=== PATIENT | female | born 1990 | race Caucasian/White ===

== ENCOUNTER 2021-09-27 23:07 | Emergency (ER) | payer MEDICAID ==
--- NOTE | 2021-09-28 00:06 | XRay Report ---
RIGHT SHOULDER, 3 VIEWS INDICATION / CLINICAL INFORMATION: INJURY. Patient fell off a 4 carranza COMPARISON: None available. FINDINGS: There is comminuted fracture involving the proximal humerus. Fracture involves the humeral neck and e xtends to involve the greater tuberosity age and of the humeral head. There is prominent displacement identified primarily on the Y view at the level of the humeral neck. The humeral head remains locate d within the glenohumeral joint. The remainder of the right shoulder is intact. AC joint and scapula appear intact with normal alignme nt. Visualized right ribs are unremarkable. IMPRESSION: Comminuted fracture of the proximal humerus primarily involving the humeral neck and marjorie on of the greater tuberosity. Signer Name: Rosa Maria Barnett MD Signed: 09/28/2021 12:01 AM Workstation Name: [id number]
[2021-09-28] MEDS ORDERED: oxyCODONE /ACETAMINOPHEN 5-325MG TAB PO ONE (00:50)
[2021-09-28] MEDS ORDERED: IBUPROFEN 800 MG TAB PO ONE (00:50)
--- NOTE | 2021-09-28 00:59 | Emergency Department Report ---
ED Extremity Problem HPI - General Chief complaint: Extremity Injury, Upper Stated complaint: ARM INJURY Source: patient Mode of arrival: Ambulatory Limitations: No Limitations - History of Present Illness Initial comments: Patient is a 31-year-old female with no significant past medical history who suffered a fall prior to arrival. Was a ground-level fall patient injured right shoulder. Pain is estimated at a 7 out of 10 in severity with any movement. No head injury no other complaints at this time. - Related Data Previous Rx's Medication Instructions Recorded Last Taken Type HYDROcodone/APAP 5-325 [Jerome 1 - 2 each PO Q6HR PRN #15 tablet 09/28/21 Unknown Rx 5/325] Ketorolac [Toradol] 10 mg PO Q6H PRN #20 tablet 09/28/21 Unknown Rx Allergies Allergy/AdvReac Type Severity Reaction Status Date / Time No Known Allergies Allergy Unverified 09/27/21 23:12 ED Review of Systems ROS: Stated complaint: ARM INJURY Other details as noted in HPI Comment: All other systems reviewed and negative ED Past Medical Hx - Past Medical History Previous Medical History?: No - Surgical History Past Surgical History?: No - Medications Home Medications: Home Medications Medication Instructions Recorded Confirmed Last Taken Type HYDROcodone/APAP 5-325 [Jerome 1 - 2 each PO Q6HR PRN #15 tablet 09/28/21 Unknown Rx 5/325] Ketorolac [Toradol] 10 mg PO Q6H PRN #20 tablet 09/28/21 Unknown Rx ED Physical Exam - General Limitations: No Limitations General appearance: alert, in no apparent distress - Head Head exam: Present: atraumatic, normocephalic - Eye Eye exam: Present: normal appearance - ENT ENT exam: Present: mucous membranes moist - Neck Neck exam: Present: normal inspection - Respiratory Respiratory exam: Present: normal lung sounds bilaterally. Absent: respiratory distress - Cardiovascular Cardiovascular Exam: Present: regular rate, normal rhythm - GI/Abdominal GI/Abdominal exam: Present: distended - Extremities Exam Extremities exam: Present: normal inspection - Expanded Upper Extremity Exam Right Shoulder Exam: Present: tenderness, swelling. Absent: full ROM - Back Exam Back exam: Present: normal inspection - Neurological Exam Neurological exam: Present: alert, oriented X3 - Psychiatric Psychiatric exam: Present: normal affect, normal mood - Skin Skin exam: Present: warm, dry, intact, normal color. Absent: rash ED Medical Decision Making - Radiology Data RIGHT SHOULDER, 3 VIEWS INDICATION / CLINICAL INFORMATION: INJURY. Patient fell off a 4 carranza COMPARISON: None available. FINDINGS: There is comminuted fracture involving the proximal humerus. Fracture involves the humeral neck and extends to involve the greater tuberosity age and of the humeral head. There is prominent displacement identified primarily on the Y view at the level of the humeral neck. The humeral head remains located within the glenohumeral joint. The remainder of the right shoulder is intact. AC joint and scapula appear intact with normal alignment. Visualized right ribs are unremarkable. IMPRESSION: Comminuted fracture of the proximal humerus primarily involving the humeral neck and region of the greater tuberosity. Signer Name: Rosa Maria Barnett MD Signed: 09/28/2021 12:01 AM Workstation Name: [id number] - Medical Decision Making Patient with a proximal humerus fracture. Patient placed in a coaptation splint and a sling and the patient be given follow-up with orthopedics. Critical care attestation.: If time is entered above; I have spent that time in minutes in the direct care of this critically ill patient, excluding procedure time. ED Disposition Clinical Impression: Proximal humeral fracture Qualifiers: Encounter type: initial encounter Fracture type: closed Fracture morphology: unspecified fracture morphology Laterality: right Qualified Code(s): S42.201A - Unspecified fracture of upper end of right humerus, initial encounter for closed fracture Disposition: 01 HOME / SELF CARE / HOMELESS Is pt being admited?: No Does the pt Need Aspirin: No Condition: Stable Instructions: Cast or Splint Care, Adult, [id number], Humerus Fracture Treated With Immobilization, [id number] Referrals: JAYCOB KABA MD [Staff Physician] - 3-5 Days Time of Disposition: 01:01 Print Language: GUATEMALAN
[2021-09-28 03:04] VITALS: BP 132/83
== END 2021-09-28 03:04 | disposition home or self-care (01) ==
LOC: ED 23:07
DX: S42.201A Unspecified fracture of upper end of right humerus, initial encounter for closed fracture (principal); W18.39XA Other fall on same level, initial encounter; Y93.89 Activity, other specified; Y92.89 Other specified places as the place of occurrence of the external cause; Y99.8 Other external cause status
CPT/HCPCS: 99283

== ENCOUNTER 2021-10-21 09:12 | Outpatient (CLI) | payer MEDICAID ==
--- NOTE | 2021-10-21 10:14 | XRay Report ---
RIGHT SHOULDER 3 VIEWS INDICATION: PAIN IN RIGHT SHOULDER. COMPARISON: 09/27/2021 IMPRESSION: Comminuted fracture of the right humeral head and neck appears unchanged in position and alignment since 09/27/2021 exam. Mild calcified callus is identified at the fracture site consistent w ith interval healing. The remaining bony structures are intact. There is increased inferior subluxat ion at the glenohumeral joint. This probably represents a large right shoulder joint effusion. The so ft tissues are otherwise unremarkable. Signer Name: Kodi Mock Jr, MD Signed: 10/21/2021 10:09 AM Workstation Name: [id number]
== END 2021-10-21 09:13 | disposition home or self-care (01) ==
LOC: XRAY 09:12
PROVIDERS: ATTEND Orthopaedic Surgery
DX: S42.291D Other displaced fracture of upper end of right humerus, subsequent encounter for fracture with routine healing (principal); M25.411 Effusion, right shoulder; X58.XXXD Exposure to other specified factors, subsequent encounter

== ENCOUNTER 2021-11-04 08:17 | Outpatient (CLI) | payer MEDICAID ==
--- NOTE | 2021-11-04 09:59 | XRay Report ---
RIGHT SHOULDER 3 VIEWS INDICATION / CLINICAL INFORMATION: PAIN IN RIGHT SHOULDER. COMPARISON: 10/21/21. FINDINGS: BONES / JOINT(S): A comminuted fracture of the right humeral head and neck is again identified. Mild bony callus formation has shown minimal change. Mild subluxations/pseudosubluxation of the right jaleel ral head inferiorly in relationship to the glenoid process is stable. There are mild degenerative yuly nges involving the acromioclavicular joint. SOFT TISSUES: No significant abnormality. ADDITIONAL FINDINGS: The visualized right lung is clear. IMPRESSION: Minimal change since 10/21/21. Signer Name: Brain Brandt MD Signed: 11/04/2021 9:55 AM Workstation Name: [id number]
== END 2021-11-04 08:18 | disposition home or self-care (01) ==
LOC: XRAY 08:17
PROVIDERS: ATTEND Orthopaedic Surgery
DX: S42.291A Other displaced fracture of upper end of right humerus, initial encounter for closed fracture (principal); M19.011 Primary osteoarthritis, right shoulder; X58.XXXA Exposure to other specified factors, initial encounter; Y93.89 Activity, other specified; Y92.89 Other specified places as the place of occurrence of the external cause; Y99.8 Other external cause status

== ENCOUNTER 2021-11-25 08:14 | Outpatient (CLI) | payer MEDICAID ==
--- NOTE | 2021-11-25 09:41 | XRay Report ---
RIGHT SHOULDER 3 VIEWS INDICATION: RIGHT SHOULDER PAIN. COMPARISON: 11/04/2021 IMPRESSION: Comminuted fracture of the proximal right humerus is unchanged in position and alignment since 11/04/2021. There is increased calcified callus at the fracture site indicating interval healing although fracture lines remain evident. The remaining bony structures are intact. The right humeral head is low-lying with respect to the glenoid which probably represents a large right shoulder effusi on or subluxation. No significant DJD. Signer Name: Kodi Mock Jr, MD Signed: 11/25/2021 9:37 AM Workstation Name: [id number]
== END 2021-11-25 08:15 | disposition home or self-care (01) ==
LOC: XRAY 08:14
PROVIDERS: ATTEND Orthopaedic Surgery
DX: S42.351D Displaced comminuted fracture of shaft of humerus, right arm, subsequent encounter for fracture with routine healing (principal); X58.XXXD Exposure to other specified factors, subsequent encounter